=== PATIENT | female | born 1965 | race Caucasian/White ===

== ENCOUNTER → 2016-07-28 | Outpatient (CLI) | payer BC ==
[~2016-07-28] MED LIST: ASPI81TA28 PO; HYG/25 PO; LOSA1TAB PO; LPT/20 PO; RANI150T3 PO; TAMO20TA9 PO
--- NOTE | 2016-07-28 08:44 | DIAGNOSTIC IMAGING REPORT ---
RIGHT FOOT MIN 3 VIEWS ROUTINE CLINICAL HISTORY: RIGHT ACUTE FOOT PAIN Right pain COMPARISON: None. DISCUSSION: Bunion deformity distal first metatarsal. Hallux valgus configuration. Heel spur. No evidence for fracture or dislocation. There is no evidence for soft tissue swelling. IMPRESSION: Bunion deformity and hallux valgus configuration great toe. Heel spur. Electronically signed by: Foreign Voss M.D. 07/28/2016 8:42 AM Dictated Date/Time: 07/28/2016 8:37 AM
== END | disposition home or self-care (01) ==
LOC: C.RAD 07:57
PROVIDERS: ATTEND Internal Medicine
DX: M21.611 Bunion of right foot (principal); M20.11 Hallux valgus (acquired), right foot; M77.31 Calcaneal spur, right foot

== ENCOUNTER → 2016-08-09 | Outpatient (CLI) | payer BC ==
--- NOTE | 2016-08-09 17:08 | MAMMOGRAPHY REPORT ---
BILATERAL DIGITAL SCREENING MAMMOGRAM TOMOSYNTHESIS WITH CAD: 08/09/2016 CLINICAL HISTORY: Asymptomatic. Personal history of breast cancer. TECHNIQUE: Breast tomosynthesis in addition to standard 2D mammography was performed. Current study was also evaluated with a Computer Aided Detection (CAD) system. COMPARISON: Comparison is made to exams dated: 09/24/2015 specimen, 08/17/2015 mammogram, 08/06/2015 ma mmogram, 08/04/2014 mammogram, 07/30/2013 mammogram, and 07/22/2012 mammogram - [facility]ter. BREAST COMPOSITION: There are scattered areas of fibroglandular density in both breasts. FINDINGS: A linear scar marker overlies the upper outer posterior right breast. There is expected a rchitectural distortion at the surgical site in the right upper outer quadrant. However, there are new calcifications near the surgical site for which additional spot magnification views are recommen ded. There are stable to slightly decreased low density lobulated circumscribed masses in the left breast . No other new suspicious mass, unexpected architectural distortion or suspicious calcifications ar e seen. IMPRESSION: ACR BI-RADS CATEGORY 0: INCOMPLETE EVALUATION: NEED ADDITIONAL IMAGING EVALUATION The new calcifications near the surgical site in the right upper outer quadrant need additional eval uation. The patient will be called to schedule an appointment. Approximately 10% of breast cancers are not detected with mammography. A negative mammographic repor t should not delay biopsy if a clinically suggestive mass is present. Ludy Bynum M.D. ay/:08/09/2016 16:32:04 [employer]: Carolyn Lloyd, [facility] letter sent: Addl Imaging 0 BI-RADS Code: ACR BI-RADS Category 0: Incomplete Evaluation: Need Additional Imaging Evaluation
== END | disposition home or self-care (01) ==
LOC: C.MAMM 07:22
PROVIDERS: ATTEND Obstetrics & Gynecology
DX: Z12.31 Encounter for screening mammogram for malignant neoplasm of breast (principal); R92.1 Mammographic calcification found on diagnostic imaging of breast

== ENCOUNTER → 2016-08-10 | Outpatient (CLI) | payer BC ==
--- NOTE | 2016-08-10 16:04 | DIAGNOSTIC IMAGING REPORT ---
MRI RIGHT FOREFOOT WITHOUT IV CONTRAST CLINICAL HISTORY: Foot pain. COMPARISON STUDY: Radiograph right foot dated 07/28/2016 TECHNIQUE: MRI of the right forefoot is performed utilizing various T1 and T2-weighted sequences in the axial, sagittal, coronal planes. IV contrast was not ministered for this examination. FINDINGS: There is marrow edema identified throughout the second proximal phalanx. No clear fracture line is identified. No additional acute amount is suspected throughout the forefoot. There is a mild hallux valgus deformity with arthritic change and subchondral cyst formation seen at the first metatarsophalangeal joint. There is mild soft tissue swelling around the second proximal phalanx. There overlying soft tissues are otherwise normal in appearance. The regional musculature is normal in appearance. Soft tissues swelling is also noted around the ankle joint laterally as seen on the large field of view images. IMPRESSION: 1. There is marrow edema identified throughout the second proximal phalanx, likely representing a stress reaction. No definite fracture line is seen. 2. Hallux valgus with arthritic change at the first metatarsophalangeal joint.. Electronically signed by: Rajiv Thornton M.D. 08/10/2016 4:03 PM Dictated Date/Time: 08/10/2016 3:56 PM
== END | disposition home or self-care (01) ==
LOC: C.MRI 14:39
PROVIDERS: ATTEND Internal Medicine
DX: M79.671 Pain in right foot (principal)

== ENCOUNTER → 2016-08-18 | Outpatient (CLI) | payer BC ==
--- NOTE | 2016-08-18 15:41 | MAMMOGRAPHY REPORT ---
UNILATERAL RIGHT DIGITAL DIAGNOSTIC MAMMOGRAM: 08/18/2016 CLINICAL HISTORY: History of right breast cancer status post lumpectomy September 2015, callback from a s creening mammogram for right breast calcifications. TECHNIQUE: Spot magnification right cc and ML views were obtained. COMPARISON: Comparison is made to exams dated: 08/09/2016 mammogram, 09/24/2015 specimen, 09/24/2015 l ocalization, 08/17/2015 mammogram, 08/06/2015 mammogram, and 08/04/2014 mammogram - [facility]. BREAST COMPOSITION: There are scattered areas of fibroglandular density in the right breast. FINDINGS: Spot magnification views of the lumpectomy bed demonstrate a few scattered calcifications in the right upper outer quadrant, which are coarse and benign-appearing on the magnified views and are consistent with benign dystrophic calcifications. No suspicious masses or clusters of microcal cifications are noted on the additional views. A linear scar marker denotes a scar on the right upp er outer breast. IMPRESSION: ACR-BI-RADS CATEGORY 3: PROBABLY BENIGN Calcifications near the lumpectomy bed in the right upper outer quadrant are consistent with benign dystrophic calcifications. There is no mammographic evidence of malignancy in the right breast. Re commend follow-up diagnostic mammograms of the right breast in 6 months to reevaluate right breast p ostsurgical changes, given that this is the patient's first follow-up after surgery. The patient has been verbally notified of the results. Approximately 10% of breast cancers are not detected with mammography. A negative mammographic repor t should not delay biopsy if a clinically suggestive mass is present. Zehra Oseguera M.D. /:08/18/2016 08:26:50 Facilities Locator: Carolyn Lloyd, [facility] letter sent: Personal History 3 BI-RADS Code: ACR-BI-RADS Category 3: Probably Benign
== END | disposition home or self-care (01) ==
LOC: C.MAMM 07:59
PROVIDERS: ATTEND Obstetrics & Gynecology
DX: R92.1 Mammographic calcification found on diagnostic imaging of breast (principal); Z85.3 Personal history of malignant neoplasm of breast

== ENCOUNTER → 2017-02-12 | Outpatient (CLI) | payer BC | END | disposition home or self-care (01) | LOC: C.RDSM 16:11 | PROVIDERS: ATTEND Physical Medicine & Rehabilitation Sports Medicine | DX: M79.671 Pain in right foot (principal); M79.672 Pain in left foot; M79.674 Pain in right toe(s); M25.561 Pain in right knee ==

== ENCOUNTER → 2017-02-22 | Outpatient (CLI) | payer BC ==
--- NOTE | 2017-02-22 14:53 | MAMMOGRAPHY REPORT ---
UNILATERAL RIGHT DIGITAL DIAGNOSTIC MAMMOGRAM TOMOSYNTHESIS WITH CAD: 02/22/2017 CLINICAL HISTORY: History of right breast cancer status post lumpectomy September 2015, who presents for h er second follow-up after surgery. She denies any current complaints. TECHNIQUE: Breast tomosynthesis in addition to standard 2D mammography was performed. Current study was also evaluated with a Computer Aided Detection (CAD) system. Right CC and MLO 2-D and tomosynthe sis images and spot magnification right cc and ML views were obtained. COMPARISON: Comparison is made to exams dated: 08/18/2016 mammogram, 08/09/2016 mammogram, 08/[place], 08/06/2015 mammogram, 08/04/2014 mammogram, and 07/30/2013 mammogram - [facility]. BREAST COMPOSITION: There are scattered areas of fibroglandular density in the right breast. FINDINGS: There are stable post surgical changes in the right upper outer quadrant from prior lumpect jess. Spot magnification views of the lumpectomy bed demonstrates a few coarse benign dystrophic calc ifications which are stable, without suspicious masses or clusters of microcalcifications seen. A li near scar marker denotes a scar on the right upper outer breast. The remainder of the right breast i s stable compared to prior exams, without suspicious masses, calcifications, or areas of architectura l distortion noted. IMPRESSION: ACR-BI-RADS CATEGORY 3: PROBABLY BENIGN Stable postsurgical changes in the right breast, without mammographic evidence of malignancy in the r ight breast. Recommend bilateral diagnostic tomosynthesis mammograms in 6 months, to reevaluate righ t breast postsurgical changes and for routine mammography of the left breast. The patient has been verbally notified of the results. Approximately 10% of breast cancers are not detected with mammography. A negative mammographic report should not delay biopsy if a clinically suggestive mass is present. Zehra Oseguera M.D. /:02/22/2017 08:58:18 Budget Examiner: Ángela HOOPER(Jamshid)(M), [facility] letter sent: Personal History 3 BI-RADS Code: ACR-BI-RADS Category 3: Probably Benign
== END | disposition home or self-care (01) ==
LOC: C.MAMM 08:30
PROVIDERS: ATTEND Obstetrics & Gynecology
DX: Z08 Encounter for follow-up examination after completed treatment for malignant neoplasm (principal); Z85.3 Personal history of malignant neoplasm of breast

== ENCOUNTER → 2017-11-12 | Outpatient (CLI) | payer OTHER ==
[~2017-11-12] MED LIST changes: -LPT/20 PO; +LPT20 PO
--- NOTE | 2017-11-12 13:45 | DIAGNOSTIC IMAGING REPORT ---
R KNEE 3 VIEWS HISTORY: 52 years-old Female R KNEE PAIN S/P FALL acute posttraumatic right knee pain with fall COMPARISON: Right knee radiographs 02/12/2017 TECHNIQUE: 3 views of the right knee FINDINGS: Mild tricompartmental osteoarthritis with prominent spurring about the the trochlear groove of the distal femur. Small joint effusion. No acute fracture or dislocation. Corticated subcentimeter bone fragment adjacent to the medial tibial plateau suggests fragmented osteophyte. IMPRESSION: Small joint effusion without acute fracture or dislocation. The above report was generated using voice recognition software. It may contain grammatical, syntax or spelling errors. Electronically signed by: Kendall Dobbs M.D. 11/12/2017 1:44 PM Dictated Date/Time: 11/12/2017 1:42 PM
== END | disposition home or self-care (01) ==
LOC: C.RAD1850 13:29
PROVIDERS: ATTEND Nurse Practitioner Adult Health
DX: M25.461 Effusion, right knee (principal); M25.561 Pain in right knee; X58.XXXA Exposure to other specified factors, initial encounter

== ENCOUNTER 2017-12-06 19:57 | Emergency (ER) | payer OTHER ==
[~2017-12-06] VITALS: Ht 157.5 cm; Wt 93.0 kg
[2017-12-06 20:02] VITALS: TEMP 36.9; Ht 157.5 cm; Wt 93.0 kg
--- NOTE | 2017-12-06 21:08 | DIAGNOSTIC IMAGING REPORT ---
R KNEE 3 VIEWS CLINICAL HISTORY: Right knee pain status post trauma COMPARISON: November 12, 2017 DISCUSSION: No acute fractures or dislocations are visualized. There are osteoarthritic changes most pronounced the medial joint compartment and patellofemoral joint. Small bony fragments adjacent the medial aspect of the proximal tibia (are felt to be chronic. IMPRESSION: Moderate osteoarthritic change. No acute fractures. Electronically signed by: Amari Lozoya M.D. 12/06/2017 9:06 PM Dictated Date/Time: 12/06/2017 9:06 PM
--- NOTE | 2017-12-06 21:30 | EMERGENCY ROOM VISIT NOTE ---
History First contact with patient: 20:30 Chief Complaint: KNEEPAIN Stated Complaint: FALL:KNEE PAIN History of Present Illness The patient is a 52 year old female who presents to the Emergency Room with complaints of right knee pain. The patient states that she fell this evening approximately 3 hours ago. She states she was trying to step over a baby gate when her toe got caught and she fell, landing onto the asphalt with her right knee. She does report she has been having issues with this knee and had a recent MRI. She is scheduled to see orthopedics. She states that she has had pain in the knee for several months when walking up and down steps. She rates her current discomfort a 3/10 and has not taken anything for the pain. She is having a difficult time bearing weight on the leg. She denies any other injuries. Review of Systems A complete 6 point review of systems was reviewed with the patient with pertinent positives and negatives as per history of present illness. All else were negative. Past Medical/Surgical History Medical Problems: (1) No significant active problems Social History Smoking Status: Never Smoker Housing Status: lives with family Current/Historical Medications Scheduled Aspirin (Aspirin Ec), 81 MG PO QAM Atorvastatin (Lipitor), 20 MG PO HS Chlorthalidone (Hygroton), 25 MG PO QAM Losartan Potassium (Cozaar), 1 TAB PO DAILY Ranitidine Hcl (Zantac), 150 MG PO QAM Tamoxifen (Nolvadex), 20 MG PO DAILY Physical Exam Vital Signs Date Time Temp Pulse Resp B/P (MAP) Pulse Ox O2 Delivery O2 Flow Rate FiO2 12/06/17 21:48 72 20 147/74 97 12/06/17 20:02 36.9 75 16 153/85 97 Room Air Physical Exam VITALS: Vitals are noted on the nurse's note and reviewed by myself. Vital signs stable. GENERAL: This is a 52-year-old female, in no acute distress, nondiaphoretic, well-developed well-nourished. MUSCULOSKELETAL: No obvious deformity of the right knee. There is tenderness to palpation and ecchymosis of the anterior aspect of the right knee. Full passive and active range of motion of the knee. No valgus or varus laxity. NEURO: Patient was alert and oriented to person place and time. Normal sensation to light and sharp touch. Deep tendon reflexes 2+ throughout. No focal neurological deficits. Medical Decision & Procedures ER Provider Diagnostic Interpretation: R KNEE 3 VIEWS CLINICAL HISTORY: Right knee pain status post trauma COMPARISON: November 12, 2017 DISCUSSION: No acute fractures or dislocations are visualized. There are osteoarthritic changes most pronounced the medial joint compartment and patellofemoral joint. Small bony fragments adjacent the medial aspect of the proximal tibia (are felt to be chronic. IMPRESSION: Moderate osteoarthritic change. No acute fractures. Medical Decision Differential diagnosis includes fracture, sprain, contusion, among others. The patient was evaluated as above. X-ray of the knee was obtained and read by radiology with no acute findings. Patient was informed of these findings. She was advised to follow-up with orthopedics as scheduled. An Osmar wrap was applied to the knee. She has a walker at home. She verbalized understanding of my assessment and treatment plan and was discharged home in good condition. Medication Reconcilliation Current Medication List: was personally reviewed by me Blood Pressure Screening Patient's blood pressure: Elevated blood pressure Blood pressure disposition: Elevated BP felt to be situational Impression Primary Impression: Contusion of right knee Departure Information Dispostion Home / Self-Care Condition GOOD Referrals Antwon Ruiz M.D. (PCP) Pasquale Jimenez D.O. Patient Instructions My [facility] Additional Instructions You have been treated in the Emergency Department for Knee Pain. For pain control, you can use the following [id number] medicines (if >12 yo): - Regular strength (325mg/tab) Tylenol (acetaminophen) 2 tabs every 4-6 hours as needed. Do not exceed 12 tablets in a 24 hour period. Avoid taking more than 4 grams (4000 mg) of Tylenol per day. This includes any other sources of acetaminophen you may take on a regular basis. Ibuprofen as prescribed. If this is a recent injury (<24 hrs), ice can be applied to the area of pain for the first 3 days to help decrease pain and inflammation. Ice massages can be performed by freezing water in a paper cup, peeling back the cup to expose the ice and then massaging over the affected area. Use the Osmar wrap and walker as needed. Follow-up with orthopedics as scheduled. Return to the Emergency Department if your current symptoms worsen despite treatment course outlined above. Problem Qualifiers Primary Impression: Contusion of right knee Encounter type: initial encounter Qualified Codes: S80.01XA - Contusion of right knee, initial encounter
[2017-12-06 21:48] VITALS: BP 147/74; PULSE 72; O2SAT 97
== END 2017-12-06 20:40 | disposition home or self-care (01) ==
LOC: C.EDB 19:59 → C.EDD 20:40
DX: S80.01XA Contusion of right knee, initial encounter (principal); W19.XXXA Unspecified fall, initial encounter